=== PATIENT | male | born 1965 | race Caucasian/White ===

== ENCOUNTER 2016-05-15 17:29 | Emergency (ER) | payer OTHER ==
[~2016-05-15] VITALS: Ht 177.8 cm; Wt 87.9 kg
[~2016-05-15 17:29] MED LIST: ANTA500T PO; ASPI1TAB69 PO; HYDR12.57 PO; LIPI20TA PO; LISI-515 PO; MULTTAB67 PO
[2016-05-15 17:46] VITALS: BP 133/90; PULSE 72; RESP 18; TEMP 98.1; O2SAT 97
--- NOTE | 2016-05-15 19:17 | PD ---
HPI Chief Complaint: Complaint Time Seen by Provider: 18:50 Travel History International Travel<30 days: No Contact w/Intl Traveler<30days: No Traveled to known affect area: No History of Present Illness HPI This 51-year-old male is complaining of inability to void. He had a biopsy of his prostate done by Dr. tejeda at around noon today. He passed a few blood clots in his urine and had hematuria. He has been unable to void for the past hour or so. He is complaining of suprapubic pain. He has a prostate biopsy done because of an elevated PSA. PFSH Past Medical History Cardiovascular Problems: Yes (VALVE) High Cholesterol: Yes Diabetes: Yes Hypertension: Yes Social History Alcohol Use: Yes Tobacco Use: No Substance Use: No Allergies-Medications (Allergen,Severity, Reaction): Coded Allergies: Sulfa (Verified Allergy, Severe, 05/15/16) Epinephrine (Verified Adverse Reaction, Unknown, ELEVATED HEART BEAT, ) Reported Meds & Prescriptions Reported Meds & Active Scripts Active Antabuse (Disulfiram) 500 Mg Tab 500 Mg PO DAILY MUST ABSTAIN FROM ALCOHOL Reported Multiple Vitamin 1 Tab 1 Tab PO DAILY Aspirin 81 Mg Tabdr 81 Mg PO DAILY Hydrochlorothiazide 12.5 Mg Cap 12.5 Mg PO DAILY Lisinopril 20 Mg Tab 20 Mg PO DAILY Lipitor (Atorvastatin Calcium) 20 Mg Tab 20 Mg PO HS Review of Systems General / Constitutional: No: Fever, Chills Eyes: No: Diploplia HENT: No: Headaches Cardiovascular: No: Chest Pain or Discomfort Respiratory: No: Cough, Shortness of Breath Gastrointestinal: No: Vomiting, Diarrhea Genitourinary: Positive: Hematuria, Decreased Urinary Output Neurologic: No: Weakness, Dizziness Endocrine: No: Heat Intolerance, Cold Intolerance Hematologic/Lymphatic: No: Easy Bruising Physical Exam Narrative GENERAL: Well-developed male SKIN: Warm and dry. HEAD: Atraumatic. Normocephalic. EYES: Pupils equal and round. No scleral icterus. No injection or drainage. ENT: No nasal bleeding or discharge. Mucous membranes pink and moist. NECK: Trachea midline. No JVD. CARDIOVASCULAR: Regular rate and rhythm. No murmur appreciated. RESPIRATORY: No accessory muscle use. Clear to auscultation. Breath sounds equal bilaterally. GASTROINTESTINAL: Abdomen soft, non-tender, nondistended. Hepatic and splenic margins not palpable. MUSCULOSKELETAL: No obvious deformities. No clubbing. No cyanosis. No edema. NEUROLOGICAL: Awake and alert. No obvious cranial nerve deficits. Motor grossly within normal limits. Normal speech. PSYCHIATRIC: Appropriate mood and affect; insight and judgment normal. Data Data Last Documented VS Vital Signs Date Time Temp Pulse Resp B/P Pulse Ox O2 Delivery O2 Flow Rate FiO2 05/15/16 17:46 98.1 72 18 133/90 97 Orders Urinary Catheter Insert/Apply (05/15/16 19:14) MDM Medical Decision Making Medical Screen Exam Complete: Yes Emergency Medical Condition: Yes Medical Record Reviewed: Yes Differential Diagnosis Differential includes bleeding secondary to biopsy, urinary retention Narrative Course Nino catheter was inserted with return of 1000 cc of bloody urine. THis relieved his pain. I have discussed the case with Dr. Hamm. He recommends a short course of Flomax. The patient should continue his antibiotics. He'll be discharged with an indwelling catheter. He is to call Dr. Bills in the morning for follow-up early next week Diagnosis Primary Impression: Acute urinary retention Additional Impression: Hematuria Additional Instructions: CALL DR BILLS IN MORNING Scripts Tamsulosin (Flomax)0.4 Mg Cap0.4 Mg PO HS #7 CAP Ref 0 Prov:Louis Richey MD 05/15/16 Disposition: 01 DISCHARGE HOME Condition: Stable Louis Richey MD May 15, 2016 19:17
[2016-05-15] MEDS ORDERED: TAMS5CAP PO (19:38)
[2016-05-15 20:28] VITALS: BP 125/72
[2016-05-28] MEDS ORDERED: LISI-515 PO (11:23)
[2016-05-28] MEDS ORDERED: HYDR12.57 PO ×2 (11:23→16:00)
[2016-05-28] MEDS ORDERED: LIPI20TA PO (11:23)
[2016-08-07] MEDS ORDERED: LISI-515 PO (13:04)
[2016-08-11] MEDS ORDERED: LIPI20TA PO (16:33)
[2016-08-27] MEDS ORDERED: HYDR12.57 PO (16:40)
== END 2016-05-15 20:31 | disposition home or self-care (01) ==
LOC: PHED 17:29
DX: R33.9 Retention of urine, unspecified (principal); R31.9 Hematuria, unspecified; E78.00 Pure hypercholesterolemia, unspecified; E11.9 Type 2 diabetes mellitus without complications; I10 Essential (primary) hypertension; Z98.890 Other specified postprocedural states
CPT/HCPCS: 51702

== ENCOUNTER 2016-05-20 04:55 | Emergency (ER) | payer OTHER ==
[~2016-05-20] VITALS: Ht 172.7 cm; Wt 84.0 kg
[~2016-05-20 04:55] MED LIST changes: +TAMS5CAP PO
[2016-05-20 05:00] VITALS: BP 146/86; PULSE 64; RESP 18; O2SAT 100
--- NOTE | 2016-05-20 05:04 | PD ---
HPI Chief Complaint: urinary retention Time Seen by Provider: 05:00 Travel History International Travel<30 days: No Contact w/Intl Traveler<30days: No Traveled to known affect area: No History of Present Illness HPI 50 year-old male presents to the emergency department by EMS transport from home for urinary catheter blockage. Patient had urinary catheter placed . Patient underwent procedure for prostate biopsy on by Dr Bills for elevated PSA. Patient's had a catheter in place since then and has done well with good urine output until this morning at 2 AM he reports that he noted an erection and there was some tension on the urinary catheter. Patient states after using ice packs the erection subsided and there was some blood in the urine as the past to the urinary catheter. Patient went back to bed and at 4 AM awakened and noticed only a small amount of urine output and discomfort consistent with bladder distention. Patient was unable to pass any further urine so called EMS to transport him to the emergency for for evaluation. Patient denies fever chills nausea vomiting flank pain or other concerns. [facility] Past Medical History Narrative Medical Diabetes dyslipidemia BPH hypertension prostate biopsy occasional alcohol use nursing notes reviewed Cardiovascular Problems: Yes (VALVE) High Cholesterol: Yes Diabetes: Yes Hypertension: Yes Social History Alcohol Use: Yes Tobacco Use: No Substance Use: No Allergies-Medications (Allergen,Severity, Reaction): Coded Allergies: Sulfa (Verified Allergy, Severe, 05/20/16) Epinephrine (Verified Adverse Reaction, Unknown, ELEVATED HEART BEAT, 05/20) Reported Meds & Prescriptions Reported Meds & Active Scripts Active Flomax (Tamsulosin HCl) 0.4 Mg Cap 0.4 Mg PO HS Antabuse (Disulfiram) 500 Mg Tab 500 Mg PO DAILY MUST ABSTAIN FROM ALCOHOL Reported Xanax (Alprazolam) 0.25 Mg Tab 0.25 Mg PO HS PRN Multiple Vitamin 1 Tab 1 Tab PO DAILY Aspirin 81 Mg Tabdr 81 Mg PO DAILY Hydrochlorothiazide 12.5 Mg Cap 12.5 Mg PO DAILY Lisinopril 20 Mg Tab 20 Mg PO DAILY Lipitor (Atorvastatin Calcium) 20 Mg Tab 20 Mg PO HS Review of Systems Except as stated in HPI: all other systems reviewed are Neg General / Constitutional: No: Fever, Chills HENT: No: Congestion Cardiovascular: No: Chest Pain or Discomfort Respiratory: No: Shortness of Breath Gastrointestinal: No: Vomiting Genitourinary: Positive: Decreased Urinary Output, Other (suprapubic pressure) Musculoskeletal: No: Pain Skin: No Rash Neurologic: No: Weakness Psychiatric: No: Anxiety Hematologic/Lymphatic: No: Lymph Node Enlargement Physical Exam Narrative GENERAL: Well-developed well-nourished male in no acute distress no respiratory distress SKIN: Warm and dry. HEAD: Normocephalic. EYES: No scleral icterus. No injection or drainage. NECK: Supple, trachea midline. No JVD or lymphadenopathy. CARDIOVASCULAR: Regular rate and rhythm without murmurs, gallops, or rubs. RESPIRATORY: Breath sounds equal bilaterally. No accessory muscle use. GASTROINTESTINAL: Abdomen soft, non-tender, mild suprapubic tenderness and distention : Circumcised male urinary catheter in place with no blood or inflammation or purulent drainage at the urethral meatus. MUSCULOSKELETAL: No cyanosis, or edema. BACK: Nontender without obvious deformity. No CVA tenderness. Data Data Last Documented VS Vital Signs Date Time Temp Pulse Resp B/P Pulse Ox O2 Delivery O2 Flow Rate FiO2 05/20/16 05:51 98.1 05/20/16 05:00 64 18 146/86 100 Orders Urinalysis - C+S If Indicated (05/20/16 05:14) Urine Culture (05/20/16 05:30) Labs Laboratory Tests Test 05/20/16 05:30 Urine Collection Type CATH Urine Color OSCAR Urine Turbidity MOD Urine pH 5.5 Urine Specific [place] 1.013 Urine Protein 30 mg/dL Urine Glucose (UA) NEG mg/dL Urine Ketones NEG mg/dL Urine Occult Blood LARGE Urine Nitrite NEG Urine Bilirubin NEG Urine Leukocyte Esterase MOD Urine RBC INNUM /hpf Urine WBC 3-5 /hpf Urine WBC Clumps RARE Urine Squamous Epithelial 0-5 /hpf Cells Urine Amorphous Sediment FEW Urine Bacteria OCC /hpf Urine Mucus MANY /lpf Microscopic Urinalysis Comment CATH-CULTURE IND MDM Medical Decision Making Medical Screen Exam Complete: Yes Emergency Medical Condition: Yes Medical Record Reviewed: Yes Interpretation(s) Urinalysis catheter specimen positive bacteria positive white blood cells positive leukocyte Estrace positive red blood cells culture indicated Differential Diagnosis Urinary retention, catheter malfunction, UTI Narrative Course Urinary catheter flushed After flushing of the urinary catheter patient has continued to have good urine output and initial urine output was 1000 cc; catheter was clamped; patient reports feels markedly improved At 5:55 AM urinary catheter continues to drain and urine output approximately 200 cc; UA pending At 6:05 AM patient identified to have abnormal urinalysis patient given first dose of antibiotic in the emergency department and prescription for Cipro. Diagnosis Primary Impression: Acute urinary retention Additional Impression: UTI (urinary tract infection) Referrals: Urologist 1 day Patient Instructions: General Instructions Additional Instructions: Follow-up with urologist Return to the emergency department for any concerns or change in condition Take acetaminophen as needed for minor pain or for fever 100.4F or greater Med/Other Pt SpecificInfo: Prescription(s) given, No Change to Meds Scripts Ciprofloxacin (Cipro)500 Mg [id number] Mg PO BID #6 TAB Ref 0 Prov:Radha Ellison MD 05/20/16 Disposition: 01 DISCHARGE HOME Condition: Stable Radha Ellison MD May 20, 2016 05:04
[2016-05-20 05:45] LABS: BLOOD, URINE LARGE (NEG); GLUCOSE,URINE NEG (NEG); KETONE, URINE NEG (NEG); NITRITE,URINE NEG (NEG); PH, URINE 5.5 (5.0-8.5)
[2016-05-20 05:51] VITALS: TEMP 98.1
[2016-05-20 05:51] LABS: METHOD OF COLLECTION CATH; URINE COLOR AMBER (YELLW/STRAW)
[2016-05-20 05:52] LABS: MUCUS URINE MANY /lpf (OCC); RBC, URINE INNUM /hpf (0-3)
[2016-05-20 05:53] LABS: BACTERIA, URINE OCC /hpf; SQUAMOUS EPITHELIAL CELL URINE 0-5 /hpf (0-5)
[2016-05-20] MEDS ORDERED: ALPR.25 PO (05:53)
[2016-05-20 05:54] LABS: COMMENT (UR) CATH-CULTURE IND; CULTURE IF INDICATED CATH CULTURE IND
[2016-05-20] MEDS ORDERED: CIPR-9 PO (06:04)
[2016-05-20] MEDS ORDERED: CIPROFLOXACIN 500 MG TAB PO ONE (06:15)
[2016-05-20 06:30] VITALS: BP 113/74; PULSE 58; RESP 18; O2SAT 99
[2016-05-28] MEDS ORDERED: LISI-515 PO (11:23)
[2016-05-28] MEDS ORDERED: HYDR12.57 PO ×2 (11:23→16:00)
[2016-05-28] MEDS ORDERED: LIPI20TA PO (11:23)
[2016-08-07] MEDS ORDERED: LISI-515 PO (13:04)
[2016-08-11] MEDS ORDERED: LIPI20TA PO (16:33)
[2016-08-27] MEDS ORDERED: HYDR12.57 PO (16:40)
== END 2016-05-20 06:37 | disposition home or self-care (01) ==
LOC: PHED 04:55
DX: R33.9 Retention of urine, unspecified (principal); N39.0 Urinary tract infection, site not specified; E11.9 Type 2 diabetes mellitus without complications; I10 Essential (primary) hypertension; N40.0 Benign prostatic hyperplasia without lower urinary tract symptoms; E78.00 Pure hypercholesterolemia, unspecified
CPT/HCPCS: 81001; 87086; 99283